=== PATIENT | male | born 1990 | race Caucasian/White ===

== ENCOUNTER 2021-10-17 23:36 | Emergency (ER) | payer OTHER ==
[~2021-10-17] VITALS: Ht 170.2 cm; Wt 99.8 kg
--- NOTE | 2021-10-17 23:36 | NUR ---
PT KEYUR GARCÍA, PREBOOK. TAKEN TO CHAIR
[2021-10-17 23:41] VITALS: BP 116/55
[2021-10-17 23:45] VITALS: BP 116/55
--- NOTE | 2021-10-17 23:52 | NUR ---
Dr. Burch examining patient.
--- NOTE | 2021-10-17 23:59 | NUR ---
Patient D/C to custody.
== END 2021-10-17 23:59 ==
LOC: MED 23:36
DX: Z02.89 Encounter for other administrative examinations (principal); V49.88XA Car occupant (driver) (passenger) injured in other specified transport accidents, initial encounter; Y93.89 Activity, other specified; Y92.89 Other specified places as the place of occurrence of the external cause; Y99.8 Other external cause status
CPT/HCPCS: 99283